=== PATIENT | male | born 1985 | race Caucasian/White ===

== ENCOUNTER 2018-03-15 07:09 | Outpatient (CLI) | payer BC ==
--- NOTE | 2018-03-15 10:05 | ULT ---
SCROTAL SONOGRAM WITH DUPLEX EVALUATION: Date: 03/15/18 HISTORY: Varicocele. FINDINGS: The right testicle is 4.8 cm and the left is 4.4 cm. Each has a normal sonographic appearance without evidence of mass. Good color and spectral Doppler flow. No evidence of varicocele. Small amount of right scrotal fluid. IMPRESSION: 1. No evidence of varicocele. No evidence of testicular mass or torsion. 2. Small right hydrocele. POS: [facility]
== END 2018-03-15 07:10 | disposition home or self-care (01) ==
LOC: SCSULT 07:09
PROVIDERS: ATTEND Family Medicine
DX: I86.1 Scrotal varices (principal); N43.3 Hydrocele, unspecified; Z00.00 Encounter for general adult medical examination without abnormal findings; D69.6 Thrombocytopenia, unspecified
CPT/HCPCS: 36415; 76870; 80053; 80061; 81001; 85007; 85027; 93976